=== PATIENT | female | born 1985 | race Caucasian/White ===

== ENCOUNTER → 2017-04-25 | Outpatient (CLI) | payer SELFPAY ==
[~2017-04-25] MED LIST: ABAC300; ACYC400 PO; ALBIPROI INH; ALBU90OI; AMOCLA875; AMOX500 PO; CALGLU500; CYCL10 PO; HYDACE5 PO; IBUP200; IBUP600 PO; MEDR150I; OXYACE5T PO; PRED10 PO; PRED20 PO; SULTRIDS PO; SYMBACORT; Sudogest30 MG
[2017-04-25 15:28] LABS: Source, Urine Catheter
[2017-04-25 17:23] LABS: Bilirubin, Urine Neg (Neg); Blood, Urine 1+ (Neg); Glucose Qualitative, Urine Neg (Neg); Ketones, Urine Neg (Neg); Leukocyte Esterase, Urine Neg (Neg); Nitrite, Urine Neg (Neg); Protein, Urine Neg (Neg); Specific Gravity, Urine 1.015 (1.003-1.022); Urobilinogen, Urine NORM (Normal)
[2017-04-25 17:42] LABS: Appearance, Urine Clear (Clear); Color, Urine Yellow (P-Yellow)
[2017-04-25 17:45] LABS: Bacteria Not Seen /hpf; Red Blood Cells, Urine 0-2 /hpf (0-2); Squamous Epithelial Cells Rare /hpf (Few); White Blood Cells, Urine Not Seen /hpf (0-5)
== END ==
LOC: OLS 15:25
PROVIDERS: Nurse Practitioner Women's Health
DX: N89.8 Other specified noninflammatory disorders of vagina (principal); R30.0 Dysuria; R39.89 Other symptoms and signs involving the genitourinary system
CPT/HCPCS: 81001; 87070; 87205

== ENCOUNTER → 2017-05-08 | Outpatient (CLI) | payer OTHER ==
[2017-05-10 12:03] LABS: HPV Genotype 16 Not Detected (NOTDET); HPV Genotype 18 Not Detected (NOTDET)
[2017-05-19 08:12] LABS: HPV High Risk Other Not Detected (NOTDET)
[2017-05-22 06:47] LABS: Source Cervix
== END | disposition home or self-care (01) ==
LOC: LAB SHORT 16:35 → OLS 16:35
PROVIDERS: Nurse Practitioner Women's Health
DX: Z12.4 Encounter for screening for malignant neoplasm of cervix (principal); Z91.89 Other specified personal risk factors, not elsewhere classified
CPT/HCPCS: 87624; G0123

== ENCOUNTER 2018-03-18 19:46 | Inpatient (IN) | payer OTHER ==
[~2018-03-18] VITALS: Ht 167.6 cm; Wt 0.1 kg
[2018-03-18] MEDS ORDERED: METHYLDOPA (20:15)
[2018-03-18] MEDS ORDERED: CETI5 PO (20:17)
[2018-03-18] MEDS ORDERED: Verotin-Gr Cap1 EACH PO (20:18)
[2018-03-18 20:30] LABS: BASOPHILS ABSOLUTE AUTO 0.01 K/mm3 (0.00-0.23); BASOPHILS PERCENT AUTO 0 % (0-2); EOSINOPHILS ABSOLUTE AUTO 0.32 K/mm3 (0.00-0.68); EOSINOPHILS PERCENT AUTO 4 % (0-6); Hematocrit 36.6 % (33.0-51.0); Hemoglobin 11.9 g/dL (11.5-16.0); IMMATURE GRAN ABSOLUTE AUTO 0.04 K/mm3 (0.00-0.10); IMMATURE GRAN PERCENT AUTO 1 % (0-1); LYMPHOCYTES ABSOLUTE AUTO 1.43 K/mm3 (0.84-5.20); LYMPHOCYTES PERCENT AUTO 16 % (21-46); MONOCYTES PERCENT AUTO 10 % (4-13); Mean Corpuscular HGB 29.8 pg (26.0-34.0); Mean Corpuscular HGB Conc 32.5 g/dL (31.5-36.5); Mean Corpuscular Volume 92 fL (80-100); Mean Platelet Volume 11.4 fL (9.1-12.4); NEUTROPHILS ABSOLUTE AUTO 6.18 K/mm3 (1.96-9.15); NEUTROPHILS PERCENT AUTO 70 % (41-73); Platelet Count 229 K/mm3 (150-400); RDW Coefficient Variation 13.9 % (11.7-14.2); Red Blood Cell Count 3.99 M/mm3 (3.80-5.20); White Blood Cell Count 8.88 K/mm3 (4.00-11.30)
[2018-03-21 08:15] LABS: BASOPHILS ABSOLUTE AUTO 0.01 K/mm3 (0.00-0.23); BASOPHILS PERCENT AUTO 0 % (0-2); EOSINOPHILS ABSOLUTE AUTO 0.08 K/mm3 (0.00-0.68); EOSINOPHILS PERCENT AUTO 1 % (0-6); Hematocrit 34.4 % (33.0-51.0); Hemoglobin 11.1 g/dL (11.5-16.0); IMMATURE GRAN ABSOLUTE AUTO 0.05 K/mm3 (0.00-0.10); IMMATURE GRAN PERCENT AUTO 0 % (0-1); LYMPHOCYTES PERCENT AUTO 11 % (21-46); MONOCYTES ABSOLUTE AUTO 0.99 K/mm3 (0.16-1.47); MONOCYTES PERCENT AUTO 8 % (4-13); Mean Corpuscular HGB 29.8 pg (26.0-34.0); Mean Corpuscular HGB Conc 32.3 g/dL (31.5-36.5); Mean Corpuscular Volume 93 fL (80-100); Mean Platelet Volume 11.3 fL (9.1-12.4); NEUTROPHILS ABSOLUTE AUTO 10.01 K/mm3 (1.96-9.15); NEUTROPHILS PERCENT AUTO 80 % (41-73); Platelet Count 202 K/mm3 (150-400); RDW Standard Deviation 46.6 fL (35.1-46.3); Red Blood Cell Count 3.72 M/mm3 (3.80-5.20); White Blood Cell Count 12.44 K/mm3 (4.00-11.30)
== END 2018-03-21 19:25 | disposition home or self-care (01) | DRG 806 ==
LOC: BC 19:46
PROVIDERS: ADMIT Nurse Practitioner Obstetrics & Gynecology
PROC: 10E0XZZ Delivery of Products of Conception, External Approach (ICD-10-PCS; principal; 2018-03-20)
PROC: 3E0P7VZ Introduction of Hormone into Female Reproductive, Via Natural or Artificial Opening (ICD-10-PCS; 2018-03-20)
PROC: 3E0R3BZ Introduction of Anesthetic Agent into Spinal Canal, Percutaneous Approach (ICD-10-PCS; 2018-03-20)
DX: O10.92 Unspecified pre-existing hypertension complicating childbirth (principal); Z68.43 Body mass index [BMI] 50.0-59.9, adult; Z37.0 Single live birth; O99.214 Obesity complicating childbirth; E66.01 Morbid (severe) obesity due to excess calories; Z3A.39 39 weeks gestation of pregnancy; Z88.5 Allergy status to narcotic agent; Z88.2 Allergy status to sulfonamides; Z88.8 Allergy status to other drugs, medicaments and biological substances
CPT/HCPCS: 36415; 51702; 85025; J1885; J2590; J7120

== ENCOUNTER → 2019-01-08 | Outpatient (CLI) | payer OTHER ==
[~2019-01-08] MED LIST changes: +CETI5 PO; +METHYLDOPA; +Verotin-Gr Cap1 EACH PO
[2019-01-08 12:50] LABS: Source, Urine Catheter
[2019-01-08 15:42] LABS: Bilirubin, Urine Neg (Neg); Blood, Urine Neg (Neg); Glucose Qualitative, Urine Neg (Neg); Ketones, Urine 1+ (Neg); Leukocyte Esterase, Urine Neg (Neg); Nitrite, Urine Neg (Neg); Protein, Urine Neg (Neg); Urobilinogen, Urine NORM (Normal)
[2019-01-08 16:00] LABS: Appearance, Urine Clear (Clear); Color, Urine Yellow (P-Yellow)
== END | disposition home or self-care (01) ==
LOC: LAB 12:49 → LAB SHORT 12:49
PROVIDERS: Nurse Practitioner Women's Health
DX: Z12.4 Encounter for screening for malignant neoplasm of cervix (principal); N89.8 Other specified noninflammatory disorders of vagina; R30.0 Dysuria; Z91.89 Other specified personal risk factors, not elsewhere classified
CPT/HCPCS: 81003

== ENCOUNTER 2020-03-27 06:41 | Day surgery (SDC) | payer OTHER ==
[~2020-03-27] VITALS: Ht 167.6 cm; Wt 164.3 kg
[~2020-03-27 06:41] MED LIST changes: -ALBU90OI; +ALBU90OI INH
[2020-03-27] MEDS ORDERED: LOSA25 PO (07:00)
[2020-03-27] MEDS ORDERED: MONT10T PO (07:00)
--- NOTE | 2020-03-27 07:13 | NUR ---
Ambulatory in Day Surgery History, Chart, Medications and Allergies reviewed before start of procedure. Pre-Op teaching done. Pt verbalizes understanding. Lungs clear anteriorly, decrease bases.
--- NOTE | 2020-03-27 09:12 | NUR ---
Patient up to Ambulate independently. Gait steady. Discharge instructions reviewed with patient. Patient verbalizes understanding. Copy given to patient to take home. Patient States Post-Procedure ride home has been arranged. Discharged via wheelchair to private car for ride home.
== END 2020-03-27 09:11 | disposition home or self-care (01) ==
LOC: ORSCMMR 06:41 → ORD 08:00 → ORSCMMR 09:11
PROVIDERS: Internal Medicine Gastroenterology
PROC: 0DB58ZX Excision of Esophagus, Via Natural or Artificial Opening Endoscopic, Diagnostic (ICD-10-PCS; principal; 2020-03-27 08:00)
PROC: 0D758ZZ Dilation of Esophagus, Via Natural or Artificial Opening Endoscopic (ICD-10-PCS; principal; 2020-03-27 08:00)
PROC: 0DB68ZX Excision of Stomach, Via Natural or Artificial Opening Endoscopic, Diagnostic (ICD-10-PCS; principal; 2020-03-27 08:00)
PROC: 0DB98ZX Excision of Duodenum, Via Natural or Artificial Opening Endoscopic, Diagnostic (ICD-10-PCS; principal; 2020-03-27 08:00)
DX: R13.10 Dysphagia, unspecified (principal); K29.50 Unspecified chronic gastritis without bleeding; K21.9 Gastro-esophageal reflux disease without esophagitis; R11.2 Nausea with vomiting, unspecified; J45.909 Unspecified asthma, uncomplicated; G47.33 Obstructive sleep apnea (adult) (pediatric); I10 Essential (primary) hypertension; E66.01 Morbid (severe) obesity due to excess calories; Z68.43 Body mass index [BMI] 50.0-59.9, adult; Z79.899 Other long term (current) drug therapy
CPT/HCPCS: 88305; 88342; J2704; J7120

== ENCOUNTER 2020-04-14 10:35 | Emergency (ER) | payer OTHER ==
[~2020-04-14] VITALS: Ht 167.6 cm; Wt 145.2 kg
[~2020-04-14 10:35] MED LIST changes: +LOSA25 PO; +MONT10T PO
[2020-04-14 11:25] LABS: BASOPHILS ABSOLUTE AUTO 0.01 K/mm3 (0.00-0.23); BASOPHILS PERCENT AUTO 0 % (0-2); EOSINOPHILS ABSOLUTE AUTO 0.01 K/mm3 (0.00-0.68); EOSINOPHILS PERCENT AUTO 0 % (0-6); Hematocrit 41.1 % (33.0-51.0); Hemoglobin 13.5 g/dL (11.5-16.0); IMMATURE GRAN ABSOLUTE AUTO 0.04 K/mm3 (0.00-0.10); IMMATURE GRAN PERCENT AUTO 0 % (0-1); LYMPHOCYTES ABSOLUTE AUTO 1.65 K/mm3 (0.84-5.20); LYMPHOCYTES PERCENT AUTO 19 % (21-46); MONOCYTES ABSOLUTE AUTO 0.71 K/mm3 (0.16-1.47); MONOCYTES PERCENT AUTO 8 % (4-13); Mean Corpuscular HGB 28.7 pg (26.0-34.0); Mean Corpuscular HGB Conc 32.8 g/dL (31.5-36.5); Mean Corpuscular Volume 87 fL (80-100); NEUTROPHILS PERCENT AUTO 73 % (41-73); Platelet Count 254 K/mm3 (150-400); RDW Coefficient Variation 13.9 % (11.7-14.2); Red Blood Cell Count 4.71 M/mm3 (3.80-5.20); White Blood Cell Count 8.92 K/mm3 (4.00-11.30)
[2020-04-14 11:49] LABS: Anion Gap 8 mmol/L (6-16); CO2, Blood 25 mmol/L (21-32); Chloride, Blood 106 mmol/L (98-108); Potassium, Blood 4.1 mmol/L (3.5-5.5); Sodium, Blood 139 mmol/L (136-145); Troponin I <0.015 ng/mL (0.000-0.040)
[2020-04-14 11:50] LABS: Alanine Aminotransfer (ALT/SGP 43 U/L (12-78); Albumin/Globulin Ratio 0.7 (0.8-1.8); Alk Phos 77 U/L (50-136); Aspartate Aminotrans (AST/SGOT 21 U/L (12-37); Bilirubin, Total 0.3 mg/dL (0.1-1.0); Blood Urea Nitrogen 11 mg/dL (8-24); Bun/Creatinine Ratio 20.8 (12.0-20.0); Calcium, Blood 8.6 mg/dL (8.5-10.1); Creatinine, Blood 0.53 mg/dL (0.40-1.00); Globulin, Blood 4.2 g/dL (2.2-4.0); Glomerular Filtration Rate >60 (60-); Glucose, Blood 102 mg/dL (70-99); Total Protein, Blood 7.2 g/dL (6.4-8.2)
[2020-04-14] MEDS ORDERED: DOXY100 PO (14:26)
== END 2020-04-14 15:08 | disposition home or self-care (01) ==
LOC: ER 10:35
PROVIDERS: Emergency Medicine
DX: J18.9 Pneumonia, unspecified organism (principal); Z79.899 Other long term (current) drug therapy
CPT/HCPCS: 36415; 71045; 71260; 80053; 83880; 84484; 85025; 85379; 93005; 93010; 96374-59; 99285-25; A9270; J1100; Q9967

== ENCOUNTER 2020-04-15 01:40 | Inpatient (IN) | payer OTHER ==
[~2020-04-15] VITALS: Ht 167.6 cm; Wt 158.5 kg
[~2020-04-15 01:40] MED LIST changes: +DOXY100 PO
--- NOTE | 2020-04-15 06:40 | NUR ---
SHIFT SUMMARY PATIENT ARRIVED TO ICU RM 12 @@ 04:35. AFTER GOING TO THE BATHROOM AND PLACING ON MONITOR COMPLETED ADMISSION ASSESSMENT, DOCUMENTATION, EDUCATED ON TYPICAL COURSE FOR COVID TREATMENT INCLUDING REMDISEVIR AND DECADRON, USE, INDICATION, POSSIBLE SIDE EFFECTS. HAVE MADE MULTIPLE ATTEMPTS AT PAGING DR EATON TO INFORM OF LACTIC ACID = 2.7, HAVE NOT RECEIVED CALL BACK. NO C/O PAIN, DYSPNEA ONLY WITH AMBULATION. ASSESSMENT IS CHARTED. VSS. WILL CONTINUE TO MONITOR.
--- NOTE | 2020-04-15 08:00 | NUR ---
PT A&O X4. DENIES PAIN. NO SOB AT REST. LUNGS DIMINISHED IN THE BASES AND TIGHT THROUGH OUT.EXERTIONAL DYSPNEA NOTED, BUT PT MAINTAINS SATS>90% ON RA. PT REQUESTS THAT HER ROUTINE MEDS INCLUDING NEBS BE RE-ORDERED. WILL DISCUSS WITH DURING ROUNDS. WILL ALSO REQUEST STATUS CHANGE TO MEDICAL ONCE MD EVALUATES PT.
--- NOTE | 2020-04-15 08:51 | NUR ---
ECHOCARDIOGRAM COMPLETED
--- NOTE | 2020-04-15 14:00 | NUR ---
PT OOB TO CHAIR UNASSISTED. PT GIVEN ITEMS TO DO SPONGE BATH. ASSISTED STANDBY AND WASHED PT BACK. PT TOLERATED WELL. MAINTAINED SATS>90%, BUT RR 30. PT REQUEST NEB-GIVEN PER PT REQUEST.
--- NOTE | 2020-04-15 17:52 | NUR ---
SHIFT SUMMARY: ASSUMED CARE OF PATIENT UPON HER ARRIVAL FROM ICU AT 1627. SHE IS A&O X 4, PLEASANT. LUNGS ARE CLEAR THROUGHOUT, ON RA, MECHANICAL ENGINEERING DIRECTOR COUGH. DENIES PAIN BUT ENDORSES A "TIGHT" FEELING ON INSPIRATION. IS INDEPENDENT IN ROOM. PLACED ON TELEMETRY, SR 82. GOOD PO INTAKE, CBG 112.
[2020-04-16 05:35] LABS: Anion Gap 5 mmol/L (6-16); Blood Urea Nitrogen 19 mg/dL (8-24); Bun/Creatinine Ratio 30.1 (12.0-20.0); CO2, Blood 27 mmol/L (21-32); Calcium, Blood 8.6 mg/dL (8.5-10.1); Chloride, Blood 108 mmol/L (98-108); Creatinine, Blood 0.63 mg/dL (0.40-1.00); Glomerular Filtration Rate >60 (60-); Glucose, Blood 85 mg/dL (70-99); Potassium, Blood 4.1 mmol/L (3.5-5.5); Sodium, Blood 140 mmol/L (136-145)
--- NOTE | 2020-04-16 05:35 | NUR ---
PT IS A/O, IND IN ROOM SOB WITH EXERTION, DRY COUGH AT TIMES, CBG AC/HS TELE IN SR, BLE EDEMA.
--- NOTE | 2020-04-16 17:03 | NUR ---
SHIFT SUMMARY PATIENT MEDICATED X1 FOR PAIN AND X1 FOR COUGH. DYSPNEA WITH EXERTION. MAINTAINING OXYGEN SATURATION AT 95% ON ROOM AIR. 1L/PRN FOR COMFORT AFTER ACTIVITY UNTIL RECOVERED. INDEPENDENT IN ROOM. EATING AND DRINKING WELL. DENIES NAUSEA. PLEASANT AND COOPERATIVE WITH CARE.
[2020-04-17 05:40] LABS: Anion Gap 6 mmol/L (6-16); Blood Urea Nitrogen 14 mg/dL (8-24); Bun/Creatinine Ratio 25.1 (12.0-20.0); CO2, Blood 27 mmol/L (21-32); Calcium, Blood 8.8 mg/dL (8.5-10.1); Chloride, Blood 106 mmol/L (98-108); Creatinine, Blood 0.56 mg/dL (0.40-1.00); Glomerular Filtration Rate >60 (60-); Glucose, Blood 104 mg/dL (70-99); Potassium, Blood 3.8 mmol/L (3.5-5.5); Sodium, Blood 139 mmol/L (136-145)
--- NOTE | 2020-04-17 06:01 | NUR ---
PT IS A/O UP IND IN ROOM, PT WAS GIVEN COUGH SYRUP AND TESSALON PEARLS THIS SHIFT FOR COUGH. CBG AC/HS, NO INSULIN COVERAGE NEEDED FOR THIS SHIFT.
--- NOTE | 2020-04-17 16:59 | NUR ---
SHIFT SUMMARY PATIENT MEDICATED X1 FOR COUGH. DENIES PAIN, NAUSEA, AND SHORTNESS OF BREATH. UP INDEPENDENT IN ROOM. MAINTAINING OXYGEN SATURATION ABOVE 95% ON ROOM AIR. POWERGLIDE PLACED IN PABLO. EATING AND DRINKING WELL.
--- NOTE | 2020-04-17 21:06 | NUR ---
2100 GAVE AC DOSE OF HUMALOG INSTEAD OF HS DOSE. PT RECIEVED 1 UNIT HUMALOG WITH CBG OF 170. DR BARILLAS NOTIFIED. PROVIDER UNDERSTOOD AND ORDERED TO CONTINUE TO MONITOR PT.
--- NOTE | 2020-04-18 04:46 | NUR ---
SUMMARY PT HAD SOME NOTED BRADYCARDIA REPORTED BY CORPORATE BOND TRADER. TECH REPORTED PT DIPPED INTO THE 30'S AND HAD A 3 SECOND PAUSE. THIS OCCURRED WHILE PT SLEEPING. PT WAS WOKE UP AND RATE RETURNED TO THE 70'S. PT DENIED SOB OR CX PAIN. NO OTHER ISSUES NOTED. PT CONTINUES TO HAVE COUGH AND TX PER EMAR W/ SOME RELIEF. PT HAS SLEPT DURING SHIFT. PT EAGER TO GO HOME. CALL LIGHT IN REACH.
[2020-04-18] MEDS ORDERED: Guaifenesin Wit10 ML PO (13:27)
[2020-04-18] MEDS ORDERED: DEXA6 (13:29)
--- NOTE | 2020-04-18 14:48 | NUR ---
1405 PT DISCHARGED HOME VIA PERSONAL VEHICLE ACCOMPANIED AND DRIVEN BY . ESCORTED TO ENTRANCE VIA W/C BY THIS RN. D/C PAPERWORK REVIEWED WITH PT AND COPY PROVIDED, HARD SCRIPT WITH PT. POWER GLIDE LEFT IN PLACE FOR [facility] TOMORROW. [facility] ORDERS FAXED TO [facility], APPOINTMENT MADE AND PT AWARE OF TIME. NO NEW CHANGES OR CONCERNS.
== END 2020-04-18 14:05 | disposition home or self-care (01) | DRG 177 ==
LOC: ER 01:40 → MEDS 03:07 → ICUW 03:07 → MEDS 16:27
PROVIDERS: Family Medicine; ADMIT Internal Medicine
PROC: 8E0ZXY6 Isolation (ICD-10-PCS; principal; 2020-04-15)
PROC: 3E0333Z Introduction of Anti-inflammatory into Peripheral Vein, Percutaneous Approach (ICD-10-PCS; 2020-04-15)
PROC: XW033E5 Introduction of Remdesivir Anti-infective into Peripheral Vein, Percutaneous Approach, New Technology Group 5 (ICD-10-PCS; 2020-04-15)
DX: U07.1 COVID-19 (principal); J96.01 Acute respiratory failure with hypoxia; J12.82 Pneumonia due to coronavirus disease 2019; E66.2 Morbid (severe) obesity with alveolar hypoventilation; I31.3 Pericardial effusion (noninflammatory); Z68.43 Body mass index [BMI] 50.0-59.9, adult; R65.10 Systemic inflammatory response syndrome (SIRS) of non-infectious origin without acute organ dysfunction; J45.909 Unspecified asthma, uncomplicated; E11.9 Type 2 diabetes mellitus without complications; Z88.2 Allergy status to sulfonamides; Z88.8 Allergy status to other drugs, medicaments and biological substances; Z88.5 Allergy status to narcotic agent; K21.9 Gastro-esophageal reflux disease without esophagitis; I10 Essential (primary) hypertension; Z79.899 Other long term (current) drug therapy; Z79.84 Long term (current) use of oral hypoglycemic drugs; Z98.890 Other specified postprocedural states; F41.9 Anxiety disorder, unspecified
CPT/HCPCS: 36415; 71045; 71260; 80048; 80053; 82947; 83605; 83880; 84484; 85025; 85379; 87040; 93005; 93010; 93306; 94640; 94760; 96374; 96374-59; 99285-25; A9270; J0456; J1100; J1650; J1940; J7050; Q9967

== ENCOUNTER 2020-04-19 06:47 | Day surgery (SDC) | payer OTHER ==
[~2020-04-19 06:47] MED LIST changes: +DEXA6; +Guaifenesin Wit10 ML PO
== END 2020-04-19 15:45 | disposition home or self-care (01) ==
LOC: ATC 06:47
DX: U07.1 COVID-19 (principal); J12.82 Pneumonia due to coronavirus disease 2019; E66.01 Morbid (severe) obesity due to excess calories; I10 Essential (primary) hypertension; J45.909 Unspecified asthma, uncomplicated; R73.03 Prediabetes; K21.9 Gastro-esophageal reflux disease without esophagitis; Z88.5 Allergy status to narcotic agent; Z88.2 Allergy status to sulfonamides; Z88.8 Allergy status to other drugs, medicaments and biological substances
CPT/HCPCS: 96365

== ENCOUNTER 2020-04-26 05:34 | Emergency (ER) | payer OTHER ==
[~2020-04-26] VITALS: Ht 167.6 cm; Wt 136.1 kg
[2020-04-26 06:43] LABS: BASOPHILS ABSOLUTE AUTO 0.02 K/mm3 (0.00-0.23); BASOPHILS PERCENT AUTO 0 % (0-2); EOSINOPHILS ABSOLUTE AUTO 0.08 K/mm3 (0.00-0.68); EOSINOPHILS PERCENT AUTO 1 % (0-6); Hematocrit 36.8 % (33.0-51.0); Hemoglobin 11.5 g/dL (11.5-16.0); IMMATURE GRAN ABSOLUTE AUTO 0.14 K/mm3 (0.00-0.10); IMMATURE GRAN PERCENT AUTO 2 % (0-1); LYMPHOCYTES ABSOLUTE AUTO 3.37 K/mm3 (0.84-5.20); LYMPHOCYTES PERCENT AUTO 36 % (21-46); MONOCYTES ABSOLUTE AUTO 0.96 K/mm3 (0.16-1.47); MONOCYTES PERCENT AUTO 10 % (4-13); Mean Corpuscular HGB 28.4 pg (26.0-34.0); Mean Corpuscular HGB Conc 31.3 g/dL (31.5-36.5); Mean Corpuscular Volume 91 fL (80-100); Mean Platelet Volume 9.9 fL (9.1-12.4); NEUTROPHILS ABSOLUTE AUTO 4.79 K/mm3 (1.96-9.15); NEUTROPHILS PERCENT AUTO 51 % (41-73); Platelet Count 277 K/mm3 (150-400); RDW Coefficient Variation 14.4 % (11.7-14.2); Red Blood Cell Count 4.05 M/mm3 (3.80-5.20); White Blood Cell Count 9.36 K/mm3 (4.00-11.30)
[2020-04-26 07:01] LABS: Alanine Aminotransfer (ALT/SGP 58 U/L (12-78); Albumin, Blood 2.5 g/dL (3.4-5.0); Albumin/Globulin Ratio 0.6 (0.8-1.8); Alk Phos 59 U/L (50-136); Anion Gap 5 mmol/L (6-16); Aspartate Aminotrans (AST/SGOT 17 U/L (12-37); Bilirubin, Total 0.3 mg/dL (0.1-1.0); Blood Urea Nitrogen 16 mg/dL (8-24); Bun/Creatinine Ratio 23.2 (12.0-20.0); CO2, Blood 31 mmol/L (21-32); Calcium, Blood 8.7 mg/dL (8.5-10.1); Chloride, Blood 108 mmol/L (98-108); Creatinine, Blood 0.69 mg/dL (0.40-1.00); Glomerular Filtration Rate >60 (60-); Glucose, Blood 84 mg/dL (70-99); Potassium, Blood 4.2 mmol/L (3.5-5.5); Sodium, Blood 144 mmol/L (136-145); Total Protein, Blood 6.5 g/dL (6.4-8.2)
[2020-04-26 07:11] LABS: International Normalized Ratio 0.91; Prothrombin Time Results 9.8 Sec (9.7-11.5)
[2020-04-26] MEDS ORDERED: POTASSIUM GLUCO90 M1 (07:33)
[2020-04-26] MEDS ORDERED: FURO20 PO (07:33)
[2020-04-26] MEDS ORDERED: PANT20 PO (07:35)
[2020-04-26 08:51] LABS: Source, Urine Clean Catch
[2020-04-26 08:58] LABS: Bilirubin, Urine Neg (Neg); Blood, Urine 1+ (Neg); Glucose Qualitative, Urine Neg (Neg); Ketones, Urine Neg (Neg); Leukocyte Esterase, Urine 1+ (Neg); Nitrite, Urine Neg (Neg); Protein, Urine Neg (Neg); Urobilinogen, Urine NORM (Normal)
[2020-04-26 09:05] LABS: Appearance, Urine Clear (Clear); Color, Urine Yellow (P-Yellow)
[2020-04-26 09:07] LABS: Bacteria Few /hpf; Squamous Epithelial Cells Mod /hpf (Few)
[2020-04-26] MEDS ORDERED: OXYC5 PO (09:59)
[2020-04-26] MEDS ORDERED: METPRE4DP PO (09:59)
== END 2020-04-26 10:23 | disposition home or self-care (01) ==
LOC: ER 05:34
PROVIDERS: Emergency Medicine
DX: I77.6 Arteritis, unspecified (principal); G47.36 Sleep related hypoventilation in conditions classified elsewhere
CPT/HCPCS: 36415; 80053; 81001; 83605; 85025; 85610; 85651; 85730; 87040; 87086; 96361; 96374; 96375; 96376; 99284-25; J1100; J1170; J1885; J2405; J7120

== ENCOUNTER 2020-05-08 19:27 | Observation (INO) | payer OTHER ==
[~2020-05-08] VITALS: Ht 167.6 cm; Wt 176.1 kg
[~2020-05-08 19:27] MED LIST changes: +FURO20 PO; +METPRE4DP PO; +OXYC5 PO; +PANT20 PO; +POTASSIUM GLUCO90 M1
[2020-05-08 21:08] LABS: BASOPHILS ABSOLUTE AUTO 0.02 K/mm3 (0.00-0.23); BASOPHILS PERCENT AUTO 0 % (0-2); EOSINOPHILS ABSOLUTE AUTO 0.18 K/mm3 (0.00-0.68); EOSINOPHILS PERCENT AUTO 3 % (0-6); Hematocrit 36.9 % (33.0-51.0); Hemoglobin 11.9 g/dL (11.5-16.0); IMMATURE GRAN ABSOLUTE AUTO 0.06 K/mm3 (0.00-0.10); IMMATURE GRAN PERCENT AUTO 1 % (0-1); LYMPHOCYTES ABSOLUTE AUTO 1.57 K/mm3 (0.84-5.20); LYMPHOCYTES PERCENT AUTO 23 % (21-46); MONOCYTES ABSOLUTE AUTO 0.55 K/mm3 (0.16-1.47); MONOCYTES PERCENT AUTO 8 % (4-13); Mean Corpuscular HGB 29.7 pg (26.0-34.0); Mean Corpuscular HGB Conc 32.2 g/dL (31.5-36.5); Mean Corpuscular Volume 92 fL (80-100); Mean Platelet Volume 9.9 fL (9.1-12.4); NEUTROPHILS ABSOLUTE AUTO 4.36 K/mm3 (1.96-9.15); NEUTROPHILS PERCENT AUTO 65 % (41-73); Platelet Count 209 K/mm3 (150-400); RDW Coefficient Variation 15.2 % (11.7-14.2); RDW Standard Deviation 50.8 fL (35.1-46.3); Red Blood Cell Count 4.01 M/mm3 (3.80-5.20); White Blood Cell Count 6.74 K/mm3 (4.00-11.30)
[2020-05-08 21:19] LABS: Alanine Aminotransfer (ALT/SGP 51 U/L (12-78); Albumin, Blood 3.2 g/dL (3.4-5.0); Albumin/Globulin Ratio 0.8 (0.8-1.8); Alk Phos 71 U/L (50-136); Anion Gap 3 mmol/L (6-16); Aspartate Aminotrans (AST/SGOT 17 U/L (12-37); Bilirubin, Total 0.2 mg/dL (0.1-1.0); Blood Urea Nitrogen 10 mg/dL (8-24); Bun/Creatinine Ratio 16.2 (12.0-20.0); CO2, Blood 31 mmol/L (21-32); Calcium, Blood 9.1 mg/dL (8.5-10.1); Chloride, Blood 108 mmol/L (98-108); Creatinine, Blood 0.62 mg/dL (0.40-1.00); Globulin, Blood 3.9 g/dL (2.2-4.0); Glomerular Filtration Rate >60 (60-); Glucose, Blood 115 mg/dL (70-99); Sodium, Blood 142 mmol/L (136-145); Total Protein, Blood 7.1 g/dL (6.4-8.2); Troponin I <0.015 ng/mL (0.000-0.040)
[2020-05-08 23:08] LABS: PCO2 Arterial 43.9 mmHg (35-45); PO2 Arterial 65.7 mmHg (80-100); pH Blood Arterial 7.44 (7.35-7.45)
--- NOTE | 2020-05-09 06:06 | NUR ---
ADMISSION: PATIENT IS RECIEVED FROM ER, ENHANCED ISOLATION FOR RESPIRATORY S/S. NEVER FULLT RECOVERED FROM LAST ADMISSION WITH COVID. BP AND HR ARE ELEVATED. PATIENT IS SOB SATING 96% ON 1.5L NC. PATIENT IS ORIENTED TO ROOM AND CALL WHITTEN.
[2020-05-09] MEDS ORDERED: METF500 PO (06:17)
[2020-05-09] MEDS ORDERED: FURO20 PO (06:41)
--- NOTE | 2020-05-09 07:50 | NUR ---
0750 PER AUTO BUMPER MECHANIC. PT HAS BEEN NSR IN 70'S THIS SHIFT. HAS DROPOPED DOWN TWICE TO 50-60'S, THEN RETURN TO NSR AT 70'S. JUST DROPPED DOWN TO 46 FOR FEW SECONDS. THEN BACK TO NSR. PT STTES ASYMPTOMATIC. ADVISED DR UREÑA, NO NEW ORDERES. OKAY GIVE COZAAR.
--- NOTE | 2020-05-09 08:00 | NUR ---
PT PLEASANT COOP A/O. SOB WITH EXERTION. NO C/O PAIN. STATES DEEP BREATHING SINCE COVID IN FEB CAUSES TIGHTNESS IN CHEST. OCC SHARP PAIN. H/R REG, NO MURMER NOTED. PER TELE NSR AT 70 HAVE HAD DROP LOW 46 SEE 0730 NOTE. LUNGS DIM T/O. ON 1.5 L O2 N/C. RESP EASY UNLABORED. BT X4 LAST BM TODAY. VOIDS INDEPENDANT TO BATHROOM. BED IN LOW POSISITON, CALL LITE IN REACH, CALLS APROP
--- NOTE | 2020-05-09 17:49 | NUR ---
PT HAS BEEN PLEASANT TODAY. HAS BEEN INDEPENDANT IN ROOM. WAS TO GIVE HYDRALAZINE FOR HTN, BUT IT CAME DOWN JUST BEFORE WAS TO GIVE. NO OTHER CONCERNS AT THHIS TIME. CONTINUES TO BE SOB WITH AMBULATION. BED IN LOW POSITION, CALL LITE IN REACH, CALLS APPROP
--- NOTE | 2020-05-10 03:56 | NUR ---
CARDIAC/RESPIRATORY: @ 0220 TELI TECH REPORTS PATIENT IS HAVING SINUS ARYTHMIA'S. PATIENT IS OBSERVED SLEEPING AND HAVING SHORT PERIODS OF APNEA. PATIENT REPORTS NO CHEST PAIN VSS.
[2020-05-10 05:04] LABS: BASOPHILS ABSOLUTE AUTO 0.01 K/mm3 (0.00-0.23); BASOPHILS PERCENT AUTO 0 % (0-2); EOSINOPHILS ABSOLUTE AUTO 0.12 K/mm3 (0.00-0.68); EOSINOPHILS PERCENT AUTO 1 % (0-6); Hematocrit 36.2 % (33.0-51.0); Hemoglobin 11.1 g/dL (11.5-16.0); IMMATURE GRAN ABSOLUTE AUTO 0.07 K/mm3 (0.00-0.10); IMMATURE GRAN PERCENT AUTO 1 % (0-1); LYMPHOCYTES ABSOLUTE AUTO 2.04 K/mm3 (0.84-5.20); LYMPHOCYTES PERCENT AUTO 23 % (21-46); MONOCYTES ABSOLUTE AUTO 0.71 K/mm3 (0.16-1.47); MONOCYTES PERCENT AUTO 8 % (4-13); Mean Corpuscular HGB 28.4 pg (26.0-34.0); Mean Corpuscular HGB Conc 30.7 g/dL (31.5-36.5); Mean Corpuscular Volume 93 fL (80-100); Mean Platelet Volume 9.7 fL (9.1-12.4); NEUTROPHILS ABSOLUTE AUTO 5.87 K/mm3 (1.96-9.15); NEUTROPHILS PERCENT AUTO 67 % (41-73); Platelet Count 212 K/mm3 (150-400); RDW Coefficient Variation 15.7 % (11.7-14.2); RDW Standard Deviation 52.1 fL (35.1-46.3); Red Blood Cell Count 3.91 M/mm3 (3.80-5.20); White Blood Cell Count 8.82 K/mm3 (4.00-11.30)
--- NOTE | 2020-05-10 05:27 | NUR ---
SHIFT SUMMARY: PATIENT IS HAVING PERIODS OF APNEA DURING SLEEP. @ 0442 THERE WAS A 3.4 SEC PAUSE AND A RATE DROP TO THE 40'S MOMENTARILY. VSS STABLE WITH BP'S ELEVATED. PATIENT REPORTS NO CHEST PAIN OR INCREASED SOB, SHE WAS SLEEPING WHEN NETWORK SUPPORT TECHNICIAN ENTERED ROOM. DR GARNER WAS NOTIFIED AND ORDERS FOR CPAP DURING SLEEP AND A STAT EKG IF RATE DROPS TO 40'S. RT WAS NOTIFIED AND CAME TO ROOM TO DISCUSS CPAP WITH PATIENT. SHE HAS HAD A SLEEP STUDY RECENTLY AND IS IN THE PROCESS OF GETTING INSURANCE APPROVAL. SHE ALSO REPORTS USING CPAP PREVIOUSLY AND LOST IT DUE TO NON COMPLIANCE. SHE REFUSE NEED OF CPAP AT THIS TIME BUT WILL ATTEMP TO USE ONE TONIGHT IF SHE IS STILL HERE.
[2020-05-10 05:30] LABS: Albumin, Blood 2.9 g/dL (3.4-5.0); Anion Gap 5 mmol/L (6-16); Blood Urea Nitrogen 13 mg/dL (8-24); Bun/Creatinine Ratio 21.4 (12.0-20.0); CO2, Blood 29 mmol/L (21-32); Chloride, Blood 107 mmol/L (98-108); Creatinine, Blood 0.61 mg/dL (0.40-1.00); Glomerular Filtration Rate >60 (60-); Glucose, Blood 111 mg/dL (70-99); Phosphorus, Blood 4.5 mg/dL (2.5-4.9); Potassium, Blood 3.8 mmol/L (3.5-5.5); Sodium, Blood 141 mmol/L (136-145)
[2020-05-10] MEDS ORDERED: Prednisone10 MG PO (11:27)
[2020-05-10] MEDS ORDERED: Acetaminophen325 M1 PO (11:30)
[2020-05-10] MEDS ORDERED: ROXICODONE5 MG PO (11:30)
[2020-05-10] MEDS ORDERED: AIRDUO RESPICL1 EAC4 INH (11:31)
[2020-05-10] MEDS ORDERED: GUAI600T33 PO (11:31)
[2020-05-10] MEDS ORDERED: HYDRA25 PO (11:32)
[2020-05-10] MEDS ORDERED: COMBIVENT RESPIM4 G1 INH (11:33)
[2020-05-10] MEDS ORDERED: ONDA4ODT MM (11:34)
[2020-05-10] MEDS ORDERED: VISBIOME 112.51 EACH PO (11:34)
--- NOTE | 2020-05-10 11:47 | NUR ---
PT PENDING D/C. REFUSING CBG.
--- NOTE | 2020-05-10 14:43 | NUR ---
DISCHARGE REVIEWED WITH PT. SHE VERALIZED UNDERSTANDING MEDS AND INST. HAS O2 AT HOME. IV PULLED INTACT. DID BLEED SOME. ADVISED TO HOLD ABOVE HEART AND PRESSURE IF RESUMES. HAS BEEN OUT SOME 15 MIN. NO FURTHER BLEEDING. WAS ON FULL DOSE LOVENOX. TELE REMOVED AND RETURNED. WHEELED PT TO DOOR AT 1432
== END 2020-05-10 14:28 | disposition home or self-care (01) ==
LOC: ER 19:27 → MEDS 19:28
PROVIDERS: Emergency Medicine; Family Medicine; Physician Assistant; ADMIT Family Medicine
DX: U07.1 COVID-19 (principal); J12.82 Pneumonia due to coronavirus disease 2019; J96.21 Acute and chronic respiratory failure with hypoxia; R79.1 Abnormal coagulation profile; J21.9 Acute bronchiolitis, unspecified; J45.901 Unspecified asthma with (acute) exacerbation; E66.2 Morbid (severe) obesity with alveolar hypoventilation; I77.6 Arteritis, unspecified; I10 Essential (primary) hypertension; K21.9 Gastro-esophageal reflux disease without esophagitis; R73.03 Prediabetes; R60.0 Localized edema; R00.0 Tachycardia, unspecified; Z68.43 Body mass index [BMI] 50.0-59.9, adult; Z99.81 Dependence on supplemental oxygen; Z79.52 Long term (current) use of systemic steroids; Z88.2 Allergy status to sulfonamides; Z88.8 Allergy status to other drugs, medicaments and biological substances; Z88.5 Allergy status to narcotic agent
CPT/HCPCS: 36415; 36600; 71045; 71260; 80053; 80069; 82803; 82947; 83735; 83880; 84145; 84443; 84484; 85025; 85379; 93005; 93010; 94640; 94645; 94760; 94761; 96372; 99285-25; A9270; C9113; G0378; J1650; J1815; J7512; Q9967

== ENCOUNTER → 2020-05-15 | Outpatient (CLI) | payer OTHER ==
[~2020-05-15] MED LIST changes: +AIRDUO RESPICL1 EAC4 INH; +Acetaminophen325 M1 PO; +COMBIVENT RESPIM4 G1 INH; +GUAI600T33 PO; +HYDRA25 PO; +METF500 PO; +ONDA4ODT MM; +Prednisone10 MG PO; +ROXICODONE5 MG PO; +VISBIOME 112.51 EACH PO
[2020-05-15 15:26] LABS: BASOPHILS ABSOLUTE AUTO 0.02 K/mm3 (0.00-0.23); BASOPHILS PERCENT AUTO 0 % (0-2); EOSINOPHILS ABSOLUTE AUTO 0.03 K/mm3 (0.00-0.68); EOSINOPHILS PERCENT AUTO 0 % (0-6); Hemoglobin 12.1 g/dL (11.5-16.0); IMMATURE GRAN ABSOLUTE AUTO 0.08 K/mm3 (0.00-0.10); IMMATURE GRAN PERCENT AUTO 1 % (0-1); LYMPHOCYTES ABSOLUTE AUTO 0.99 K/mm3 (0.84-5.20); LYMPHOCYTES PERCENT AUTO 8 % (21-46); MONOCYTES ABSOLUTE AUTO 0.78 K/mm3 (0.16-1.47); MONOCYTES PERCENT AUTO 6 % (4-13); Mean Corpuscular HGB 29.8 pg (26.0-34.0); Mean Corpuscular HGB Conc 32.7 g/dL (31.5-36.5); Mean Corpuscular Volume 91 fL (80-100); Mean Platelet Volume 9.8 fL (9.1-12.4); NEUTROPHILS ABSOLUTE AUTO 10.81 K/mm3 (1.96-9.15); NEUTROPHILS PERCENT AUTO 85 % (41-73); Platelet Count 320 K/mm3 (150-400); RDW Coefficient Variation 15.5 % (11.7-14.2); RDW Standard Deviation 50.4 fL (35.1-46.3); Red Blood Cell Count 4.06 M/mm3 (3.80-5.20); White Blood Cell Count 12.71 K/mm3 (4.00-11.30)
[2020-05-15 15:33] LABS: Alanine Aminotransfer (ALT/SGP 82 U/L (12-78); Albumin, Blood 3.3 g/dL (3.4-5.0); Albumin/Globulin Ratio 0.8 (0.8-1.8); Alk Phos 65 U/L (40-126); Anion Gap 6 mmol/L (6-16); Aspartate Aminotrans (AST/SGOT 23 U/L (12-37); Bilirubin, Total 0.4 mg/dL (0.1-1.0); Blood Urea Nitrogen 13 mg/dL (8-24); Bun/Creatinine Ratio 17.8 (12.0-20.0); CO2, Blood 31 mmol/L (21-32); Calcium, Blood 9.3 mg/dL (8.5-10.1); Chloride, Blood 103 mmol/L (98-108); Creatinine, Blood 0.73 mg/dL (0.40-1.00); Globulin, Blood 4.1 g/dL (2.2-4.0); Glomerular Filtration Rate >60 (60-); Glucose, Blood 105 mg/dL (70-99); Sodium, Blood 140 mmol/L (136-145); Total Protein, Blood 7.4 g/dL (6.4-8.2)
[2020-05-17 14:09] LABS: ANA DIRECT Negative (Negative); ANTI-DNA (DS) AB QN <1 IU/mL (0-9); RNP ANTIBODIES 0.2 AI (0.0-0.9); SJOGREN'S ANTI-SS-A <0.2 AI (0.0-0.9); SJOGREN'S ANTI-SS-B <0.2 AI (0.0-0.9); SMITH ANTIBODIES <0.2 AI (0.0-0.9)
== END | disposition home or self-care (01) ==
LOC: LAB EV 15:20 → LAB SHORT 15:20
PROVIDERS: Family Medicine
DX: L95.9 Vasculitis limited to the skin, unspecified (principal)
CPT/HCPCS: 80053; 85025; 86140; 86225; 86235

== ENCOUNTER → 2020-06-04 | Outpatient (CLI) | payer OTHER | END | disposition home or self-care (01) | LOC: LAB SHORT 19:20 | DX: L97.929 Non-pressure chronic ulcer of unspecified part of left lower leg with unspecified severity (principal) | CPT/HCPCS: 87070; 87077; 87147; 87186; 87205 ==

== ENCOUNTER 2020-06-29 16:46 | Emergency (ER) | payer OTHER ==
[~2020-06-29] VITALS: Ht 167.6 cm; Wt 181.4 kg
== END 2020-06-29 23:05 | disposition short-term general hospital (02) ==
LOC: ER 16:46
DX: R20.0 Anesthesia of skin (principal); M54.9 Dorsalgia, unspecified; G89.29 Other chronic pain; I10 Essential (primary) hypertension; K21.9 Gastro-esophageal reflux disease without esophagitis; J45.909 Unspecified asthma, uncomplicated; Z86.16 Personal history of COVID-19; Z79.899 Other long term (current) drug therapy
CPT/HCPCS: 36415; 81000; 81025; 96374; 99284-25; J1170

== ENCOUNTER 2020-09-17 08:21 | Emergency (ER) | payer OTHER ==
[~2020-09-17] VITALS: Ht 170.2 cm; Wt 170.1 kg
[2020-09-17 09:59] LABS: BASOPHILS ABSOLUTE AUTO 0.02 K/mm3 (0.00-0.23); BASOPHILS PERCENT AUTO 0 % (0-2); EOSINOPHILS PERCENT AUTO 2 % (0-6); Hematocrit 38.9 % (33.0-51.0); Hemoglobin 11.8 g/dL (11.5-16.0); IMMATURE GRAN ABSOLUTE AUTO 0.03 K/mm3 (0.00-0.10); IMMATURE GRAN PERCENT AUTO 0 % (0-1); LYMPHOCYTES PERCENT AUTO 11 % (21-46); MONOCYTES PERCENT AUTO 7 % (4-13); Mean Corpuscular HGB 26.5 pg (26.0-34.0); Mean Corpuscular HGB Conc 30.3 g/dL (31.5-36.5); Mean Corpuscular Volume 87 fL (80-100); NEUTROPHILS ABSOLUTE AUTO 8.52 K/mm3 (1.96-9.15); NEUTROPHILS PERCENT AUTO 80 % (41-73); Platelet Count 340 K/mm3 (150-400); RDW Coefficient Variation 13.9 % (11.7-14.2); RDW Standard Deviation 44.7 fL (35.1-46.3); Red Blood Cell Count 4.45 M/mm3 (3.80-5.20); White Blood Cell Count 10.67 K/mm3 (4.00-11.30)
[2020-09-17 10:19] LABS: Anion Gap 6 mmol/L (6-16); Blood Urea Nitrogen 11 mg/dL (8-24); Bun/Creatinine Ratio 16.2 (12.0-20.0); CO2, Blood 26 mmol/L (21-32); Calcium, Blood 9.1 mg/dL (8.5-10.1); Chloride, Blood 106 mmol/L (98-108); Creatinine, Blood 0.68 mg/dL (0.40-1.00); Glomerular Filtration Rate >60 (60-); Glucose, Blood 121 mg/dL (70-99); Potassium, Blood 4.1 mmol/L (3.5-5.5); Sodium, Blood 138 mmol/L (136-145)
[2020-09-17] MEDS ORDERED: IPRAT-ALBUT 0.5-3 ML INH (12:24)
[2020-09-17] MEDS ORDERED: PRED20 PO (12:24)
== END 2020-09-17 12:39 | disposition home or self-care (01) ==
LOC: ER 08:21
PROVIDERS: Student in an Organized Health Care Education/Training Program
DX: T45.511A Poisoning by anticoagulants, accidental (unintentional), initial encounter (principal); R04.2 Hemoptysis; Z86.16 Personal history of COVID-19; J40 Bronchitis, not specified as acute or chronic; J45.901 Unspecified asthma with (acute) exacerbation; R73.03 Prediabetes; Z88.2 Allergy status to sulfonamides; Z88.8 Allergy status to other drugs, medicaments and biological substances; Z88.5 Allergy status to narcotic agent
CPT/HCPCS: 36415; 71046; 80048; 83880; 84484; 85025; 93005; 93010; 94640; 99284-25; A9270; J7512

== ENCOUNTER 2021-01-21 14:42 | Emergency (ER) | payer OTHER ==
[~2021-01-21] VITALS: Ht 167.6 cm; Wt 167.8 kg
[~2021-01-21 14:42] MED LIST changes: +IPRAT-ALBUT 0.5-3 ML INH
[2021-01-21 15:29] LABS: BASOPHILS ABSOLUTE AUTO 0.01 K/mm3 (0.00-0.23); BASOPHILS PERCENT AUTO 0 % (0-2); EOSINOPHILS PERCENT AUTO 4 % (0-6); Hematocrit 38.8 % (33.0-51.0); Hemoglobin 11.9 g/dL (11.5-16.0); IMMATURE GRAN ABSOLUTE AUTO 0.02 K/mm3 (0.00-0.10); IMMATURE GRAN PERCENT AUTO 0 % (0-1); LYMPHOCYTES PERCENT AUTO 19 % (21-46); MONOCYTES ABSOLUTE AUTO 0.65 K/mm3 (0.16-1.47); MONOCYTES PERCENT AUTO 8 % (4-13); Mean Corpuscular HGB 25.6 pg (26.0-34.0); Mean Corpuscular HGB Conc 30.7 g/dL (31.5-36.5); Mean Corpuscular Volume 83 fL (80-100); Mean Platelet Volume 9.9 fL (9.1-12.4); NEUTROPHILS ABSOLUTE AUTO 5.82 K/mm3 (1.96-9.15); NEUTROPHILS PERCENT AUTO 69 % (41-73); Platelet Count 321 K/mm3 (150-400); RDW Standard Deviation 45.7 fL (35.1-46.3); Red Blood Cell Count 4.65 M/mm3 (3.80-5.20)
[2021-01-21 16:00] LABS: Alanine Aminotransfer (ALT/SGP 38 U/L (12-78); Albumin, Blood 3.2 g/dL (3.4-5.0); Albumin/Globulin Ratio 0.7 (0.8-1.8); Alk Phos 83 U/L (50-136); Anion Gap 6 mmol/L (6-16); Aspartate Aminotrans (AST/SGOT 21 U/L (12-37); Bilirubin, Total 0.3 mg/dL (0.1-1.0); Blood Urea Nitrogen 11 mg/dL (8-24); Bun/Creatinine Ratio 17.1 (12.0-20.0); CO2, Blood 27 mmol/L (21-32); Calcium, Blood 9.2 mg/dL (8.5-10.1); Chloride, Blood 107 mmol/L (98-108); Creatinine, Blood 0.64 mg/dL (0.40-1.00); Globulin, Blood 4.3 g/dL (2.2-4.0); Glomerular Filtration Rate >60 (60-); Glucose, Blood 110 mg/dL (70-99); Potassium, Blood 3.9 mmol/L (3.5-5.5); Sodium, Blood 140 mmol/L (136-145); Total Protein, Blood 7.5 g/dL (6.4-8.2); Troponin I <0.015 ng/mL (0.000-0.040)
== END 2021-01-21 17:37 | disposition home or self-care (01) ==
LOC: ER 14:42
PROVIDERS: Physician Assistant
DX: R07.89 Other chest pain (principal); Z88.8 Allergy status to other drugs, medicaments and biological substances; Z88.2 Allergy status to sulfonamides; Z79.899 Other long term (current) drug therapy; Z79.84 Long term (current) use of oral hypoglycemic drugs; Z79.52 Long term (current) use of systemic steroids; Z86.16 Personal history of COVID-19; K21.9 Gastro-esophageal reflux disease without esophagitis; I10 Essential (primary) hypertension
CPT/HCPCS: 36415; 71260; 80053; 83690; 83880; 84484; 85025; 93005; 93010; 99284-25; Q9967

== ENCOUNTER 2021-12-02 10:50 | Day surgery (SDC) | payer OTHER ==
[~2021-12-02] VITALS: Ht 167.6 cm; Wt 130.7 kg
[2021-12-02] MEDS ORDERED: BUPR150ER (11:24)
[2021-12-02] MEDS ORDERED: CETI5 (11:25)
[2021-12-02] MEDS ORDERED: TOPI100 (11:25)
[2021-12-02] MEDS ORDERED: DULERA 100 MCG/13 GM (11:25)
[2021-12-02] MEDS ORDERED: DEXT10ER (11:25)
[2021-12-02] MEDS ORDERED: ESOM20 (11:25)
[2021-12-02] MEDS ORDERED: COENZYME Q-1030 MG (11:26)
[2021-12-02] MEDS ORDERED: ASPI81CH (11:26)
[2021-12-02] MEDS ORDERED: ERGO400 (11:26)
--- NOTE | 2021-12-02 11:52 | NUR ---
12/02/21 [place]2 Tabatha Argueta TWO ATTEMPTS AT IV. FIRST ATTEMPT AT IV IN R FOREARM VEIN ROLLED. SECOND ATTEMPT BY MA IN R HAND SUCESSFUL.
== END 2021-12-02 12:58 | disposition home or self-care (01) ==
LOC: ORSCSDS 10:50
PROVIDERS: Internal Medicine Gastroenterology
PROC: 0DB58ZX Excision of Esophagus, Via Natural or Artificial Opening Endoscopic, Diagnostic (ICD-10-PCS; principal; 2021-12-02 12:00)
PROC: 0DB98ZX Excision of Duodenum, Via Natural or Artificial Opening Endoscopic, Diagnostic (ICD-10-PCS; principal; 2021-12-02 12:00)
PROC: 0DBA8ZX Excision of Jejunum, Via Natural or Artificial Opening Endoscopic, Diagnostic (ICD-10-PCS; principal; 2021-12-02 12:00)
PROC: 0DB68ZX Excision of Stomach, Via Natural or Artificial Opening Endoscopic, Diagnostic (ICD-10-PCS; principal; 2021-12-02 12:00)
DX: R13.12 Dysphagia, oropharyngeal phase (principal); K21.00 Gastro-esophageal reflux disease with esophagitis, without bleeding; R11.2 Nausea with vomiting, unspecified; J45.909 Unspecified asthma, uncomplicated; E11.9 Type 2 diabetes mellitus without complications; E66.01 Morbid (severe) obesity due to excess calories; Z68.43 Body mass index [BMI] 50.0-59.9, adult; G47.33 Obstructive sleep apnea (adult) (pediatric); I10 Essential (primary) hypertension; F90.9 Attention-deficit hyperactivity disorder, unspecified type; Z86.16 Personal history of COVID-19; Z79.84 Long term (current) use of oral hypoglycemic drugs; Z79.51 Long term (current) use of inhaled steroids; Z79.899 Other long term (current) drug therapy
CPT/HCPCS: 88305; 88312; 88341; 88342; J2704; J7120

== ENCOUNTER 2022-01-14 09:12 | Observation (INO) | payer OTHER ==
[~2022-01-14] VITALS: Ht 167.6 cm; Wt 129.3 kg
[~2022-01-14 09:12] MED LIST changes: +ASPI81CH; +BUPR150ER PO; +CETI5; +COENZYME Q-1030 MG; +DEXT10ER; +DULERA 100 MCG/13 GM; +ERGO400; +ESOM20; +TOPI100
[2022-01-14 10:36] LABS: BASOPHILS ABSOLUTE AUTO 0.01 K/mm3 (0.00-0.23); BASOPHILS PERCENT AUTO 0 % (0-2); EOSINOPHILS ABSOLUTE AUTO 0.19 K/mm3 (0.00-0.68); EOSINOPHILS PERCENT AUTO 3 % (0-6); Hematocrit 39.9 % (33.0-51.0); Hemoglobin 13.1 g/dL (11.5-16.0); IMMATURE GRAN ABSOLUTE AUTO 0.02 K/mm3 (0.00-0.10); IMMATURE GRAN PERCENT AUTO 0 % (0-1); LYMPHOCYTES ABSOLUTE AUTO 1.51 K/mm3 (0.84-5.20); LYMPHOCYTES PERCENT AUTO 24 % (21-46); MONOCYTES ABSOLUTE AUTO 0.41 K/mm3 (0.16-1.47); MONOCYTES PERCENT AUTO 7 % (4-13); Mean Corpuscular HGB 29.3 pg (26.0-34.0); Mean Corpuscular HGB Conc 32.8 g/dL (31.5-36.5); Mean Corpuscular Volume 89 fL (80-100); Mean Platelet Volume 10.5 fL (9.1-12.4); NEUTROPHILS ABSOLUTE AUTO 4.04 K/mm3 (1.96-9.15); NEUTROPHILS PERCENT AUTO 65 % (41-73); Platelet Count 276 K/mm3 (150-400); RDW Coefficient Variation 12.9 % (11.7-14.2); RDW Standard Deviation 42.4 fL (35.1-46.3); Red Blood Cell Count 4.47 M/mm3 (3.80-5.20); White Blood Cell Count 6.18 K/mm3 (4.00-11.30)
[2022-01-14 11:12] LABS: Albumin, Blood 3.4 g/dL (3.4-5.0); Albumin/Globulin Ratio 0.9 (0.8-1.8); Bilirubin, Total 0.6 mg/dL (0.1-1.0); Bun/Creatinine Ratio 13.7 (12.0-20.0); Creatinine, Blood 0.66 mg/dL (0.40-1.00); Globulin, Blood 3.6 g/dL (2.2-4.0); Potassium, Blood 3.9 mmol/L (3.5-5.5)
[2022-01-14 13:30] LABS: Source, Urine Clean Catch
[2022-01-14 13:49] LABS: Appearance, Urine Hazy (Clear); Bilirubin, Urine Neg (Neg); Blood, Urine 3+ (Neg); Color, Urine Yellow (P-Yellow); Glucose Qualitative, Urine Neg (Neg); Ketones, Urine Neg (Neg); Leukocyte Esterase, Urine 1+ (Neg); Nitrite, Urine Neg (Neg); Protein, Urine 1+ (Neg); Urobilinogen, Urine NORM (Normal)
--- NOTE | 2022-01-14 14:06 | NUR ---
History, Chart, Medications and Allergies reviewed before start of procedure. Patient confirms NPO status and agrees with scheduled surgery. Pre-Op teaching done. Pt verbalizes understanding.
[2022-01-14 14:09] LABS: Amorphous Light (0-Heavy); Bacteria Many /hpf; Mucus Heavy (0-Heavy); Red Blood Cells, Urine 0-2 /hpf (0-2); Squamous Epithelial Cells Many /hpf (Few)
--- NOTE | 2022-01-14 17:30 | NUR ---
POST OP PT ARRIVED FROM PACU VIA GURNEY, AWAKE BUT DROWSY, DENIES ANY NAUSEA, 4 LAP INCISIONS ON ABD W/ 2X2 GAUZE, C/D/I, ABD SOFT, LUNG SOUNDS W/ EXPIRATORY WHEEZES ON RUL AND RML, DIM. AT BASE, JACOB, LLL CLEAR, NO COUGH NOTED, DENIES ANY SOB, 92% ON RA, HRR, CONT TO MONITOR VS AND ANY CHANGES, REPORT TO NOC RN.
[2022-01-14 18:13] LABS: BASOPHILS ABSOLUTE AUTO 0.02 K/mm3 (0.00-0.23); BASOPHILS PERCENT AUTO 0 % (0-2); EOSINOPHILS ABSOLUTE AUTO 0.02 K/mm3 (0.00-0.68); EOSINOPHILS PERCENT AUTO 0 % (0-6); Hemoglobin 13.4 g/dL (11.5-16.0); IMMATURE GRAN PERCENT AUTO 1 % (0-1); LYMPHOCYTES ABSOLUTE AUTO 0.74 K/mm3 (0.84-5.20); LYMPHOCYTES PERCENT AUTO 7 % (21-46); MONOCYTES ABSOLUTE AUTO 0.26 K/mm3 (0.16-1.47); MONOCYTES PERCENT AUTO 2 % (4-13); Mean Corpuscular HGB 28.9 pg (26.0-34.0); Mean Corpuscular HGB Conc 31.2 g/dL (31.5-36.5); Mean Corpuscular Volume 93 fL (80-100); Mean Platelet Volume 10.3 fL (9.1-12.4); NEUTROPHILS PERCENT AUTO 90 % (41-73); Platelet Count 255 K/mm3 (150-400); RDW Coefficient Variation 13.1 % (11.7-14.2); RDW Standard Deviation 43.8 fL (35.1-46.3); Red Blood Cell Count 4.64 M/mm3 (3.80-5.20); White Blood Cell Count 11.14 K/mm3 (4.00-11.30)
[2022-01-15 05:27] LABS: BASOPHILS ABSOLUTE AUTO 0.01 K/mm3 (0.00-0.23); BASOPHILS PERCENT AUTO 0 % (0-2); EOSINOPHILS PERCENT AUTO 0 % (0-6); Hematocrit 38.3 % (33.0-51.0); Hemoglobin 12.3 g/dL (11.5-16.0); IMMATURE GRAN ABSOLUTE AUTO 0.07 K/mm3 (0.00-0.10); IMMATURE GRAN PERCENT AUTO 1 % (0-1); LYMPHOCYTES ABSOLUTE AUTO 0.82 K/mm3 (0.84-5.20); LYMPHOCYTES PERCENT AUTO 6 % (21-46); MONOCYTES PERCENT AUTO 4 % (4-13); Mean Corpuscular HGB 28.9 pg (26.0-34.0); Mean Corpuscular HGB Conc 32.1 g/dL (31.5-36.5); Mean Corpuscular Volume 90 fL (80-100); Mean Platelet Volume 10.3 fL (9.1-12.4); NEUTROPHILS ABSOLUTE AUTO 11.67 K/mm3 (1.96-9.15); NEUTROPHILS PERCENT AUTO 89 % (41-73); Platelet Count 263 K/mm3 (150-400); RDW Coefficient Variation 12.9 % (11.7-14.2); RDW Standard Deviation 42.5 fL (35.1-46.3); Red Blood Cell Count 4.26 M/mm3 (3.80-5.20); White Blood Cell Count 13.07 K/mm3 (4.00-11.30)
--- NOTE | 2022-01-15 05:59 | NUR ---
SHIFT SUMMARY POD 1 FOR LAP MONIKA. AOX4. VSS. TITRATED TO RA c SPO2 >95%. REPORTED 10/10 ALLOVER ABD PAIN, NAUSEA & HEARTBURN @BEGINNING OF SHIFT. MEDICATED 1X c ZOFRAN, TUMS, TORADOL & NO FURTHER NAUSEA, HEARTBURN REPORTED. PAIN DECREASED TO 6/10, MEDICATED c 1 TAB NORCO & THIS AM PAIN LEVEL 3/10. REPORTS PASSING GAS 1X & HAS TOLERATED SALTINES, WATER & APPLESAUCE W/O EMESIS. PT HAS BEEN UP SBY ASSIST TO RESTROOM, VOIDED 2X. STATES SHE FEELS "WAY BETTER THEN YESTERDAY". CALL LIGHT IN REACH & ABLE TO MAKE NEEDS KNOWN.
[2022-01-15] MEDS ORDERED: Norco 5-325 Ta1 EACH PO (08:04)
--- NOTE | 2022-01-15 08:30 | NUR ---
DISCHARGE POD 1 LAP MONIKA, X5 LAP SITES W/ GAUZE & TEGADERM. PATIENT INSTRUCTED TO REMOVE WHEN SHE GETS HOME, PER DR ORELLANA. PAIN MANAGED PER EMAR. TOLERATING REGULAR PO DIET, VOIDING WELL, REPORTS FLATUS. AMBULATING WELL W/O DIFFICULTY. DISCUSSED DISCHARGE INSTRUCTIONS & SENT WITH PATIENT WELL SCRIPT FOR NORCO 5. ESCORTED OUT VIA W/C.
== END 2022-01-15 08:25 | disposition home or self-care (01) ==
LOC: ER 09:12 → SURS 09:13
PROVIDERS: Family Medicine; Physician Assistant; ADMIT Surgery
PROC: 0FT44ZZ Resection of Gallbladder, Percutaneous Endoscopic Approach (ICD-10-PCS; principal; 2022-01-14 14:30)
DX: K80.12 Calculus of gallbladder with acute and chronic cholecystitis without obstruction (principal); J45.909 Unspecified asthma, uncomplicated; I10 Essential (primary) hypertension; R73.03 Prediabetes; E66.9 Obesity, unspecified; Z88.8 Allergy status to other drugs, medicaments and biological substances; Z88.2 Allergy status to sulfonamides; Z88.5 Allergy status to narcotic agent
CPT/HCPCS: 36415; 76705; 80053; 81001; 83690; 84703; 85025; 87086; 94760; 96365; 96375; 96376; 99285-25; A9270; G0378; J1100; J1885; J2250; J2270; J2405; J2543; J2550; J2704; J2765; J2795; J3010; J7030; J7120

== ENCOUNTER 2022-03-11 09:45 | Day surgery (SDC) | payer OTHER ==
[~2022-03-11] VITALS: Ht 167.6 cm; Wt 128.3 kg
[~2022-03-11 09:45] MED LIST changes: +Norco 5-325 Ta1 EACH PO
[2022-03-11] MEDS ORDERED: Atarax10 MG (10:29)
[2022-03-11] MEDS ORDERED: DEXT10ER (10:29)
[2022-03-11] MEDS ORDERED: Prozac20 MG (10:30)
--- NOTE | 2022-03-11 12:37 | NUR ---
03/11/22 1237 ELMER JI PT O2 SATS ARE 100% ON RA IS GIVEN AND DEMONSTRATED THROAT PAIN IS IMPROVED AFTER DRINKIN APPLE JUICE. LUNGS CTA. PT OK TO DC PER DR REICH
== END 2022-03-11 12:36 | disposition home or self-care (01) ==
LOC: ORSCSDS 09:45
PROVIDERS: Internal Medicine Gastroenterology
PROC: 0DJ08ZZ Inspection of Upper Intestinal Tract, Via Natural or Artificial Opening Endoscopic (ICD-10-PCS; principal; 2022-03-11 11:15)
DX: K21.9 Gastro-esophageal reflux disease without esophagitis (principal); R11.2 Nausea with vomiting, unspecified; R13.12 Dysphagia, oropharyngeal phase; Z86.16 Personal history of COVID-19; J45.909 Unspecified asthma, uncomplicated; B07.9 Viral wart, unspecified; E11.9 Type 2 diabetes mellitus without complications; E66.2 Morbid (severe) obesity with alveolar hypoventilation; Z68.42 Body mass index [BMI] 45.0-49.9, adult; Z79.84 Long term (current) use of oral hypoglycemic drugs; Z79.899 Other long term (current) drug therapy
CPT/HCPCS: 82947; A9270; J1100; J2250; J2704; J7120

== ENCOUNTER 2022-04-08 10:26 | Day surgery (SDC) | payer OTHER ==
[~2022-04-08] VITALS: Ht 167.6 cm; Wt 126.9 kg
[~2022-04-08 10:26] MED LIST changes: +Atarax10 MG; +Prozac20 MG
== END 2022-04-08 13:45 | disposition home or self-care (01) ==
LOC: ORSCSDS 10:26
PROVIDERS: Internal Medicine Gastroenterology
PROC: 0DB58ZX Excision of Esophagus, Via Natural or Artificial Opening Endoscopic, Diagnostic (ICD-10-PCS; principal; 2022-04-08 12:00)
PROC: 0D758ZZ Dilation of Esophagus, Via Natural or Artificial Opening Endoscopic (ICD-10-PCS; principal; 2022-04-08 12:00)
DX: R13.12 Dysphagia, oropharyngeal phase (principal); K21.9 Gastro-esophageal reflux disease without esophagitis; R11.10 Vomiting, unspecified; E11.9 Type 2 diabetes mellitus without complications; G47.33 Obstructive sleep apnea (adult) (pediatric); J45.909 Unspecified asthma, uncomplicated; Z86.16 Personal history of COVID-19; I10 Essential (primary) hypertension; E66.01 Morbid (severe) obesity due to excess calories; Z68.42 Body mass index [BMI] 45.0-49.9, adult; Z79.84 Long term (current) use of oral hypoglycemic drugs; Z79.899 Other long term (current) drug therapy
CPT/HCPCS: 88305; C1726; J2250; J2704; J3010; J7120

== ENCOUNTER → 2022-05-12 | Outpatient (CLI) | payer OTHER | END | disposition home or self-care (01) | LOC: LAB SHORT 11:22 → LAB 11:22 → PLD 11:22 | DX: D23.122 Other benign neoplasm of skin of left lower eyelid, including canthus (principal) | CPT/HCPCS: 88305 ==